=== PATIENT | male | born 1965 | race Caucasian/White ===

== ENCOUNTER 2019-07-02 23:05 | Emergency (ER) | payer OTHER, BC ==
[2019-07-02] MEDS ORDERED: Bacitracin Oint 1 GM U/D Packet TOP ONE (23:11)
[2019-07-02] MEDS ORDERED: Diphtheria,Pertussis(Acell),Tetanus Vaccine 0.5 ML Syringe IM ONE (23:11)
[2019-07-02] MEDS ORDERED: Ketorolac 60 MG/2 ML SDV IM ONE (23:11)
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
== END 2019-07-03 00:30 | disposition home or self-care (01) ==
LOC: MW.ED 23:05
DX: S80.211A Abrasion, right knee, initial encounter (principal); S50.311A Abrasion of right elbow, initial encounter; S49.91XA Unspecified injury of right shoulder and upper arm, initial encounter; T14.8XXA Other injury of unspecified body region, initial encounter; Z23 Encounter for immunization; V03.10XA Pedestrian on foot injured in collision with car, pick-up truck or van in traffic accident, initial encounter
CPT/HCPCS: 71045; 73030; 90471; 90715; 96372; 99283; J1885; 99282

== ENCOUNTER 2020-05-17 21:43 | Emergency (ER) | payer SELFPAY ==
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
--- NOTE | 2020-05-17 22:20 | CR ---
Chest: Frontal view of the chest was obtained. Comparison: No previous chest imaging is available. Heart size and mediastinum are normal. Lungs are clear with no acute parenchymal change. Bony structures are grossly intact. Impression: 1. Nothing acute is seen on frontal chest x-ray. Diagnostic code #1 This report was dictated in MDT
[2020-05-17] MEDS ORDERED: LORazepam 2 MG/ML SDV IVPUSH ONE (22:40)
[2020-05-17] MEDS ORDERED: MVI, Adult with Vitamin K 10 ML, Thiamine 100 MG, Folic Acid 1 MG in Sodium Chloride 0.... IV ONE ×4 (22:40)
[2020-05-17 22:47] LABS: BLOOD UREA NITROGEN,BUN 9 mg/dL (7.0-18.0); CARBON DIOXIDE,CO2 24.6 mmol/L (21.0-32.0); CHLORIDE,CL 98 mmol/L (98-107); GLUCOSE RANDOM 140 mg/dL (74-106); SODIUM,NA 138 mmol/L (136-148)
[2020-05-17] MEDS ORDERED: Potassium Chloride 20 MEQ Tab.ER PO ONE (22:52)
== END 2020-05-18 00:25 | disposition home or self-care (01) ==
LOC: MW.ED 21:43
DX: F10.239 Alcohol dependence with withdrawal, unspecified (principal); E87.6 Hypokalemia; F19.10 Other psychoactive substance abuse, uncomplicated; Z88.8 Allergy status to other drugs, medicaments and biological substances
CPT/HCPCS: 36415; 71045; 80053; 80305; 84484; 85025; 93005; 96365; 96375; 99285; A9270; J2060; J3411; J7030; 99283